=== PATIENT | male | born 2000 | race Caucasian/White ===

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

== ENCOUNTER 2019-12-24 09:42 | Emergency (ER) | payer OTHER ==
[~2019-12-24] VITALS: Ht 175.3 cm; Wt 103.3 kg
--- NOTE | 2019-12-24 09:44 | ED General ---
General Chief Complaint: Chest Wall Stated Complaint: WC RIB INJURY History of Present Illness Date Seen by Provider: Dec 24, 2019 Time Seen by Provider: 10:00 Initial Comments Patient is an otherwise healthy 19 y/o who works for the local [employer]. He comes to the ER this morning at the recommendation of his employer to be evaluated for left side rib pain. 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 He reports landing on the left had and causing injury to the left rib cage. Denies pain in the left upper extremity. Did not strike head. No LOC. He awoke this am with significant pain over the mid lateral left rib cage. Pain is worse when he takes a deep breath. Allergies and Home Medications Allergies Coded Allergies: No Known Drug Allergies (Unverified , 03/26/18) Home Medications Ibuprofen 800 Mg Tablet, 800 MG PO Q8H PRN for PAIN Prescribed by: AMY VICKERS on 12/24/19 1027 Patient Home Medication List Home Medication List Reviewed: Yes Review of Systems Review of Systems Constitutional: no symptoms reported EENTM: no symptoms reported Cardiovascular: no symptoms reported Gastrointestinal: no symptoms reported Musculoskeletal: see HPI Skin: no symptoms reported All Other Systems Reviewed Negative Unless Noted: Yes Physical Exam Vital Signs Vital Signs - First Documented 12/24/19 09:45 Temp 36.6 Pulse 67 Resp 18 B/P (MAP) 148/87 (107) Pulse Ox 98 O2 Delivery Room Air Capillary Refill : Height, Weight, BMI Height: '" Weight: lbs. oz. kg; BMI Method: General Appearance: No Apparent Distress, WD/WN HEENT: PERRL/EOMI Neck: Full Range of Motion Respiratory: Lungs Clear, Other (point TTP over mid lateral left ribs) Cardiovascular: Regular Rate, Rhythm Back: Normal Inspection Extremity: Normal Capillary Refill Neurologic/Psychiatric: Alert, Oriented x3 Skin: Normal Color Progress/Results/Core Measures Suspected Sepsis SIRS Temperature: Pulse: Respiratory Rate: Blood Pressure / Mean: Results/Orders My Orders Orders - AMY VICKERS DO Ribs/Unilateral With Chest (12/24/19 09:47) Ibuprofen Tablet (Motrin Tablet) (12/24/19 10:30) Vital Signs/I&O 12/24/19 09:45 Temp 36.6 Pulse 67 Resp 18 B/P (MAP) 148/87 (107) Pulse Ox 98 O2 Delivery Room Air Capillary Refill : Progress Note : Time: 10:34 Progress Note Patient seen for minor injury with pain to the left ribs. No acute findings on plain film imaging. Patient placed on motrin. Return to work in 48 hours. Rest at home today. F/u with employer's [facility] as needed but otherwise may return to work w/o restrictions. Departure Impression Primary Impression: Rib pain Additional Impression: Contusion of rib on left side Disposition: 01 HOME, SELF-CARE Condition: Improved Departure-Patient Inst. Scripts Ibuprofen (Ibuprofen) 800 Mg Tablet 800 MG PO Q8H PRN for PAIN, #30 TAB 0 Refills Prov: AMY VICKERS DO 12/24/19 AMY VICKERS DO Dec 24, 2019 09:44
--- OUTSIDE RECORDS SUMMARY | 2019-12-24 09:49 | XMS REPORT | Continuity of Care Document ---
Author Organization Unknown Address Unknown Phone Unavailable Allergies Active Description Code Type Severity Reaction Onset Reported/Identified Relationship to Patient Clinical Status Yes No Known Drug Allergies [id number] Drug Allergy Unknown N/A 03/26/2018 Medications There is no data. Problems Date Dx Coded Attending Type Code Diagnosis Diagnosed By 03/26/2018 AURA NORRIS Ot M25.572 PAIN IN LEFT ANKLE AND JOINTS OF LEFT FO 03/26/2018 AURA NORRIS Ot S90.02XA CONTUSION OF LEFT ANKLE, INITIAL ENCOUNT 03/26/2018 AURA NORRIS Ot S90.32XA CONTUSION OF LEFT FOOT, INITIAL ENCOUNTE 03/26/2018 AURA NORRIS Ot W22.09XA STRIKING AGAINST OTHER STATIONARY OBJECT 03/26/2018 AURA NORRIS Ot Y92.[address] 03/26/2018 AURA NORRIS Ot Y93.02 ACTIVITY, RUNNING 03/29/2018 AURA NORRIS Ot M25.572 PAIN IN LEFT ANKLE AND JOINTS OF LEFT FO 03/29/2018 AURA NORRIS Ot S90.02XA CONTUSION OF LEFT ANKLE, INITIAL ENCOUNT 03/29/2018 AURA NORRIS Ot S90.32XA CONTUSION OF LEFT FOOT, INITIAL ENCOUNTE 03/29/2018 AURA NORRIS Ot W22.09XA STRIKING AGAINST OTHER STATIONARY OBJECT 03/29/2018 AURA NORRIS Ot Y92.[address] 03/29/2018 AURA NORRIS Ot Y93.02 ACTIVITY, RUNNING 03/30/2018 ROE ARRIETA APRN Ot S99.929A UNSPECIFIED INJURY OF UNSPECIFIED FOOT, 03/30/2018 ROE ARRIETA APRN Ot X58.XXXA EXPOSURE TO OTHER SPECIFIED FACTORS, INI 03/31/2018 ROE ARRIETA APRN Ot S99.929A UNSPECIFIED INJURY OF UNSPECIFIED FOOT, 03/31/2018 ROE ARRIETA APRN Ot X58.XXXA EXPOSURE TO OTHER SPECIFIED FACTORS, INI 04/01/2018 ROE ARRIETA APRN Ot S99.929A UNSPECIFIED INJURY OF UNSPECIFIED FOOT, 04/01/2018 ROE ARRIETA APRN Ot X58.XXXA EXPOSURE TO OTHER SPECIFIED FACTORS, INI Procedures There is no data. Results There is no data. Encounters ACCT No. Visit Date/Time Discharge Status Pt. Type Provider Facility Loc./Unit Complaint [id number] 07/13/2017 18:50:00 07/13/2017 23:59: 59 [facility] Outpatient [facility] [id number] 03/30/2018 13:05:00 018 13:06:00 DIS Emergency ROE ARRIETA APRN [facility] ER FOOT INJURY [id number] 03/26/2018 20:09:00 018 22:45:00 DIS Emergency AURA NORRIS [facility] ER L FOOT INJ [id number] 12/24/2019 09:44:[address] Emergency AMY VICKERS DO [facility] ER FS WC RIB INJURY
--- NOTE | 2019-12-24 10:12 | Diagnostic Imaging Report ---
INDICATION: Pain. 5 views were obtained. FINDINGS: Heart size is normal. Lungs are clear. No pleural effusion or pneumothorax. Mediastinum is unremarkable. There are no displaced rib fractures. IMPRESSION: No acute cardiopulmonary abnormality. No displaced rib fractures. Dictated by: Dictated on workstation # [id number]
[2019-12-24] MEDS ORDERED: IBUP-1780 PO (10:27)
[2019-12-24] MEDS ORDERED: IBUPROFEN 800 MG (MOTRIN) TAB PO ONE (10:30)
[2019-12-24 10:35] VITALS: BP 143/85
== END 2019-12-24 10:38 | disposition home or self-care (01) ==
LOC: EDUNIT# 09:42 → ER FS 09:44
DX: S20.212A Contusion of left front wall of thorax, initial encounter (principal); W19.XXXA Unspecified fall, initial encounter; Y92.59 Other trade areas as the place of occurrence of the external cause; Y99.0 Civilian activity done for income or pay
CPT/HCPCS: 71101

== ENCOUNTER 2020-11-26 00:57 | Emergency (ER) | payer BC, OTHER ==
[~2020-11-26] VITALS: Ht 173 cm; Wt 103.3 kg
[~2020-11-26 00:57] MED LIST: IBUP-1780 PO
--- NOTE | 2020-11-26 01:54 | ED General ---
General Chief Complaint: General Problems/Pain Stated Complaint: R SIDE FACE NUMBNESS / L SIDE BODY NUMBNESS / CP Nursing Triage Note: Patient reports laying in bed around midnight and having chest pain, muscle cramps and SOA. Reports after his R side of face was numb and the L side of his body. Patient was able ambulate to room independently Source of Information: Patient Exam Limitations: No Limitations History of Present Illness Date Seen by Provider: Nov 26, 2020 Time Seen by Provider: 01:30 Initial Comments Patient is a 20-year-old male who presents to the emergency department today with a chief complaint of right-sided facial weakness, left-sided numbness and feeling weak. He also reported to the nurse that he was having some chest discomfort muscle cramps no shortness of air. Patient ambulated to room 7 without difficulty. He denies any recent illnesses such as fevers, chills, URI symptoms cough or congestion. No nausea vomiting or diarrhea. No recent illnesses in the last 2 to 3 weeks. No sick contacts. Patient states that he is having a hard time moving the right side of his face. 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 So he has a difficult time moving his right upper extremity. Patient states that his right eye is intermittently blurry. No significant past medical history denies drug use, alcohol use. All other review of systems reviewed and negative except as stated. Timing/Duration: 1 Hour Severity: Mild Associated Systoms: Chest Pain, Headaches (mild), Shortness of Air Allergies and Home Medications Allergies Coded Allergies: No Known Drug Allergies (Unverified , 03/26/18) Home Medications Ibuprofen 800 Mg Tablet, 800 MG PO Q8H PRN for PAIN Prescribed by: AMY VICKERS on 12/24/19 1027 Patient Home Medication List Home Medication List Reviewed: Yes Review of Systems Review of Systems Constitutional: see HPI EENTM: blurred vision (right eye) Respiratory: short of breath Cardiovascular: chest pain Gastrointestinal: no symptoms reported Genitourinary: no symptoms reported Musculoskeletal: muscle cramps Skin: no symptoms reported Psychiatric/Neurological: Headache, Paresthesia (left side of his body), Weakness (right facial muscles) All Other Systems Reviewed Negative Unless Noted: Yes Past Dqgzjww-Opdxhq-Rsotuu Hx Patient Social History Tobacco Use?: Yes Substance use?: No Alcohol Use?: No Pt feels they are or have been: No Seasonal Allergies Seasonal Allergies: No Past Medical History Surgeries: No Respiratory: No Cardiac: No Neurological: No Genitourinary: No Gastrointestinal: No Musculoskeletal: No Endocrine: No HEENT: No Cancer: No Psychosocial: No Integumentary: No Blood Disorders: No Family Medical History No Pertinent Family Hx Physical Exam Vital Signs Vital Signs - First Documented 11/26/20 01:11 Temp 36.4 Pulse 92 Resp 18 B/P (MAP) 142/90 (107) Pulse Ox 99 Capillary Refill : Less Than 3 Seconds Height, Weight, BMI Height: 5'9.00" Weight: 195lbs. oz. 88.107673oo; 34.00 BMI Method:Stated General Appearance: No Apparent Distress, WD/WN Eyes: Bilateral Eye Normal Inspection, Bilateral Eye PERRL, Bilateral Eye EOMI HEENT: TMs Normal, Normal ENT Inspection, Pharynx Normal Neck: Normal Inspection, Supple Respiratory: Lungs Clear, Normal Breath Sounds, No Accessory Muscle Use, No Respiratory Distress Cardiovascular: Regular Rate, Rhythm, No Murmur, Normal Peripheral Pulses Gastrointestinal: Non Tender, Soft Extremity: Normal Inspection, Other (decreased ROM right shoulder secondary to pain in the right shoulder - pre-exisiting; ) Neurologic/Psychiatric: Alert, Oriented x3, Normal Mood/Affect, Other (patient has normal function closing his right eye; will not raise his eyebrows bilaterally, but appears to have symmetrical function; talks only out of the left side of his mouth (is not drooling and drank water just fine withut a straw); right side of his mouth is not drooping and has no depressed nasolabial fold on the right. complains of subjective decreased sensation all down his left side) Progress/Results/Core Measures Suspected Sepsis SIRS Temperature: Pulse: 92 Respiratory Rate: 18 Blood Pressure 142 /90 Mean: 107 Results/Orders My Orders Orders - MONA BOOKER MD Prednisone Tablet (Deltasone Tablet) (11/26/20 02:00) Vital Signs/I&O 11/26/20 01:11 Temp 36.4 Pulse 92 Resp 18 B/P (MAP) 142/90 (107) Pulse Ox 99 Capillary Refill : Less Than 3 Seconds Blood Pressure Mean: 107 Progress Note : Time: 02:02 Progress Note patient has inconsistent exam with 7th nerve facial palsey. I don't believe he has a true Kaba's. He has subjective decreased sensation to the left side. no other focal neurologic deficits. I initially thought I would CT hs brain but I do not think in actual fact he needs this. Will go ahead and treat with steroids as he may have a partial Kaba's. Patient will be discharged to home to follow up with his primary care physician. Departure Impression Primary Impression: Paresthesia Additional Impression: Partial facial nerve palsy Disposition: HOME, SELF-CARE Condition: Stable Departure-Patient Inst. Decision time for Depature: 02:04 Referrals: [facility] [place],LOCAL PHYSICIAN (PCP) Primary Care Physician Patient Instructions: Paresthesia (DC), Kaba's Palsy Add. Discharge Instructions: take the steroids daily for the next 5 days. Follow up with a primary care physician. Return to the ER for recheck if you have any worsening numbness, weakness or other emergent concerns. Scripts Prednisone (Prednisone) 50 Mg Tab 50 MG PO DAILY for 5 Days, #5 TAB Prov: MONA BOOKER MD 11/26/20 MONA BOOKER MD Nov 26, 2020 01:54
[2020-11-26] MEDS ORDERED: predniSONE 20 MG TAB PO ONE (02:00)
[2020-11-26] MEDS ORDERED: PRD50T PO (02:06)
[2020-11-26 02:09] VITALS: BP 142/90
== END 2020-11-26 02:10 | disposition home or self-care (01) ==
LOC: EDUNIT# 00:57 → ER 00:59
DX: R20.2 Paresthesia of skin (principal); G51.0 Bell's palsy
CPT/HCPCS: 99283

== ENCOUNTER → 2020-12-07 | Outpatient (CLI) | payer BC ==
[~2020-12-07] MED LIST changes: +PRD50T PO
== END ==
LOC: LABNPT 05:09
PROVIDERS: ATTEND Orthopaedic Surgery
DX: Z01.812 Encounter for preprocedural laboratory examination (principal); Z20.822 Contact with and (suspected) exposure to COVID-19
CPT/HCPCS: 87635

== ENCOUNTER 2021-05-28 17:27 | Emergency (ER) | payer BC ==
[~2021-05-28] VITALS: Ht 175.3 cm; Wt 104.3 kg
--- NOTE | 2021-05-28 19:55 | ED Abdominal Pain ---
General Chief Complaint: Abdominal/GI Problems Stated Complaint: RUQ PAIN/FEVER Source of Information: Patient History of Present Illness Date Seen by Provider: May 28, 2021 Time Seen by Provider: 19:45 Initial Comments PT ARRIVES VIA POV FROM HOME C/O RIGHT UPPER QUADRANT PAIN SINCE WAKING AT 1130 THIS AM. FELT FINE YESTERDAY AND WHEN HE WENT TO BED LAST NIGHT PAIN IS CONSTANT AND NOTHING WORSENS OR IMPROVES PAIN RADIATES TO RIGHT FLANK RATES PAIN 10/10 + NAUSEA, NO VOMITING. NORMAL BM YESTERDAY. HAS HAD DECREASED URINATION TODAY HAS BEEN DRINKING LIQUIDS--LAST LIQUID AT 1600, BUT NOT EATEN AT ALL TODAY. HAD TEMP OF 102 AT 1600, TOOK 500 MG TYLENOL AT THAT TIME HAS NOT TAKEN ANYTHING ELSE FOR SYMPTOMS NO COUGH NO CHEST PAIN NO SHORTNESS OF BREATH PT HAS BEEN HAVING THIS PROBLEMS SINCE MID APRIL, AND WENT TO [facility] ON 05/04/21 AND DX WITH GALLBLADDER DISEASE. FOLLOWED UP AT [facility] AND WAS REFERRED TO DR. RODRIGUEZ PT SAW DR. RODRIGUEZ ON 05/21/21 AND IS SCHEDULED TO HAVE HIS GALLBLADDER REMOVED 06/05/21. HAS NOT ATTEMPTED TO CONTACT DR. RODRIGUEZ TODAY PCP: [facility] SURGEON: DR. RODRIGUEZ Allergies and Home Medications Allergies Coded Allergies: No Known Drug Allergies (Unverified , 03/26/18) Patient Home Medication List Ibuprofen (Ibuprofen) 800 Mg Tablet, 800 MG PO Q8H PRN for PAIN Prescribed by: AMY VICKERS on 12/24/19 1027 Prednisone (Prednisone) 50 Mg Tab, 50 MG PO DAILY Prescribed by: MONA BOOKER on 11/26/20 0206 Review of Systems Review of Systems Constitutional: see HPI, fever EENTM: No Symptoms Reported Respiratory: No Symptoms Reported Cardiovascular: No Symptoms Reported Gastrointestinal: See HPI, Abdominal Pain; Denies Constipated, Denies Diarrhea; Nausea, Poor Appetite, Poor Fluid Intake; Denies Vomiting Genitourinary: No Symptoms Reported Musculoskeletal: no symptoms reported Skin: no symptoms reported Psychiatric/Neurological: No Symptoms Reported Endocrine: No Symptoms Reported Hematologic/Lymphatic: No Symptoms Reported Past Wlhbwyc-Fclkrg-Hllpra Hx Patient Social History Tobacco Use?: No Use of E-Cig and/or Vaping dev: No Substance use?: No Alcohol Use?: Yes Alcohol Frequency: Once in a while Pt feels they are or have been: No Immunizations Up To Date Influenza Vaccine Up-to-Date: No; Not Current Seasonal Allergies Seasonal Allergies: No Past Medical History Surgeries: Yes (RIGHT SHOULDER SCOPE) Orthopedic Respiratory: No Cardiac: No Neurological: No Genitourinary: No Gastrointestinal: Yes Gall Bladder Disease Musculoskeletal: Yes (RIGHT SHOULDER SCOPE) Endocrine: No HEENT: No Cancer: No Psychosocial: No Integumentary: No Blood Disorders: No Family Medical History No Pertinent Family Hx Physical Exam Vital Signs Vital Signs - First Documented 05/28/21 19:32 Temp 37.4 Pulse 104 Resp 18 B/P (MAP) 114/76 (89) Pulse Ox 96 O2 Delivery Room Air Capillary Refill : Height/Weight/BMI Height: 5'9.00" Weight: 195lbs. oz. 88.270210li; 34.00 BMI Method:Stated General Appearance: WD/WN, no apparent distress, obese, other (FLAT AFFECT. DOES NOT APPEAR TO BE IN ANY DISCOMFORT; WALKS UPRIGHT AND MOVES WITHOUT DIFFICULTY) HEENT: PERRL/EOMI; No scleral icterus (R), No scleral icterus (L) Neck: normal inspection Respiratory: normal breath sounds, no respiratory distress, no accessory muscle use Cardiovascular: regular rate, rhythm, no murmur Gastrointestinal: normal bowel sounds, soft, no organomegaly; No distended, No guarding, No rebound; tenderness (EPIGASTRIC, RUQ AND RIGHT FLANK); No hernia, No mass Extremities: normal inspection Back: normal inspection, CVA tenderness (R) Neurologic/Psychiatric: no motor/sensory deficits, alert, normal mood/affect, oriented x 3 Skin: normal color, warm/dry; No jaundice Focused Exam Lactate Level 05/28/21 20:05: Lactic Acid Level 1.03 Lactic Acid Level Laboratory Tests Test 05/28/21 20:05 Lactic Acid Level 1.03 MMOL/L (0.50-2.00) Progress/Results/Core Measures Results/Orders Lab Results Laboratory Tests Test 05/28/21 20:05 05/28/21 20:50 Range/Units White Blood Count 6.1 4.3-11.0 10^3/uL Red Blood Count 4.91 4.30-5.52 10^6/uL Hemoglobin 15.4 13.3-17.7 g/dL Hematocrit 45 40-54 % Mean Corpuscular Volume 92 80-99 fL Mean Corpuscular Hemoglobin 31 25-34 pg Mean Corpuscular Hemoglobin Concent 34 32-36 g/dL Red Cell Distribution Width 13.2 10.0-14.5 % Platelet Count 234 130-400 10^3/uL Mean Platelet Volume 9.6 9.0-12.2 fL Immature Granulocyte % (Auto) 0 % Neutrophils (%) (Auto) 83 H 42-75 % Lymphocytes (%) (Auto) 6 L 12-44 % Monocytes (%) (Auto) 10 0-12 % Eosinophils (%) (Auto) 0 0-10 % Basophils (%) (Auto) 0 0-10 % Neutrophils # (Auto) 5.1 1.8-7.8 10^3/uL Lymphocytes # (Auto) 0.4 L 1.0-4.0 10^3/uL Monocytes # (Auto) 0.6 0.0-1.0 10^3/uL Eosinophils # (Auto) 0.0 0.0-0.3 10^3/uL Basophils # (Auto) 0.0 0.0-0.1 10^3/uL Immature Granulocyte # (Auto) 0.0 0.0-0.1 10^3/uL Neutrophils % (Manual) 72 % Lymphocytes % (Manual) 7 % Monocytes % (Manual) 11 % Band Neutrophils 10 % Blood Morphology Comment NORMAL Prothrombin Time 13.9 12.2-14.7 SEC INR Comment 1.0 0.8-1.4 Activated Partial Thromboplast Time 31 24-35 SEC Sodium Level 137 135-145 MMOL/L Potassium Level 4.5 3.6-5.0 MMOL/L Chloride Level 101 98-107 MMOL/L Carbon Dioxide Level 24 21-32 MMOL/L Anion Gap 12 5-14 MMOL/L Blood Urea Nitrogen 12 7-18 MG/DL Creatinine 1.24 0.60-1.30 MG/DL Estimat Glomerular Filtration Rate 74 BUN/Creatinine Ratio 10 Glucose Level 102 70-105 MG/DL Lactic Acid Level 1.03 0.50-2.00 MMOL/L Calcium Level 9.8 8.5-10.1 MG/DL Corrected Calcium 8.5-10.1 MG/DL Magnesium Level 1.7 1.6-2.4 MG/DL Total Bilirubin 0.6 0.1-1.0 MG/DL Aspartate Amino Transf (AST/SGOT) 25 5-34 U/L Alanine Aminotransferase (ALT/SGPT) 71 H 0-55 U/L Alkaline Phosphatase 80 40-136 U/L Total Protein 7.6 6.4-8.2 GM/DL Albumin 4.7 H 3.2-4.5 GM/DL Amylase Level 62 25-125 U/L Lipase 9 8-78 U/L Urine Color YELLOW Urine Clarity CLEAR Urine pH 6.0 5-9 Urine Specific [place] >=1.030 1.016-1.022 Urine Protein TRACE H NEGATIVE Urine Glucose (UA) NEGATIVE NEGATIVE Urine Ketones NEGATIVE NEGATIVE Urine Nitrite NEGATIVE NEGATIVE Urine Bilirubin 1+ H NEGATIVE Urine Urobilinogen 0.2 < = 1.0 MG/DL Urine Leukocyte Esterase NEGATIVE NEGATIVE Urine RBC (Auto) NEGATIVE NEGATIVE Urine RBC NONE /HPF Urine WBC NONE /HPF Urine Squamous Epithelial Cells 0-2 /HPF Urine Crystals NONE /LPF Urine Bacteria NEGATIVE /HPF Urine Casts NONE /LPF Urine Mucus LARGE H /LPF Urine Culture Indicated NO My Orders Orders - MIKE ELLIS DO Ed Iv/Invasive Line Start (05/28/21 19:48) Amylase (05/28/21 19:48) Cbc With Automated Diff (05/28/21 19:48) Comprehensive Metabolic Panel (05/28/21 19:48) Lactic Acid Analyzer (05/28/21 19:48) Lipase (05/28/21 19:48) Magnesium (05/28/21 19:48) Ua Culture If Indicated (05/28/21 19:48) Ed Iv/Invasive Line Start (05/28/21 19:48) Lactated Ringers (Lr 1000 Ml Iv Solution (05/28/21 20:00) Blood Culture (05/28/21 19:48) Sputum Culture (05/28/21 19:48) Urine Culture (05/28/21 19:48) Protime With Inr (05/28/21 19:48) Partial Thromboplastin Time (05/28/21 19:48) Chest 1 View, Ap/Pa Only (05/28/21 19:48) Ed Iv/Invasive Line Start (05/28/21 19:48) Ed Iv/Invasive Line Start (05/28/21 19:48) Vital Signs Adult Sepsis Patie Q15M (05/28/21 19:48) O2 (05/28/21 19:48) Remove Rings In Anticipation O (05/28/21 19:48) Manual Differential (05/28/21 20:05) Ondansetron Injection (Zofran Injectio (05/28/21 21:00) Ketorolac Injection (Toradol Injection) (05/28/21 21:00) Fentanyl Inj (Sublimaze Injection) (05/28/21 21:25) Pantoprazole Injection (Protonix Injecti (05/28/21 21:30) Medications Given in ED Current Medications Medications Dose Ordered Sig/Joanne Route Start Time Stop Time Status Last Admin Dose Admin Ketorolac Tromethamine 30 mg ONCE ONCE IVP 05/28/21 21:00 05/28/21 21:01 DC 05/28/21 21:13 30 MG Lactated Ringer's 1,000 ml @ 0 mls/hr Q0M ONCE IV 05/28/21 20:00 05/28/21 20:01 DC 05/28/21 20:05 1,000 MLS/HR Ondansetron HCl 4 mg ONCE ONCE IVP 05/28/21 21:00 05/28/21 21:01 DC 05/28/21 21:12 4 MG Vital Signs/I&O 05/28/21 05/28/21 19:32 19:32 Temp 37.4 Pulse 104 Resp 18 B/P (MAP) 114/76 (89) Pulse Ox 96 96 O2 Delivery Room Air Room Air Progress Progress Note : Progress Note SEPSIS PROTOCOL INITIATED Diagnostic Imaging Comments CXR--PER RADIOLOGIST REPORT AT 2039 FINDINGS: Single view of the chest demonstrates clear lungs bilaterally. The heart is normal. There is no pneumothorax. The osseous structures normal. IMPRESSION: Negative chest. Reviewed: Reviewed by Me Departure Communication (Admissions) 2128--SPOKE WITH DR. BOGGS, SURGEON [employer]. DOES NOT ADVISE ANY OTHER TESTS AT THIS TIME. PT IS TO CALL DR. RODRIGUEZ'S OFFICE IN THE MORNING AND SCHEDULE A FOLLOW UP APPOINTMENT THIS WEEK. Impression Primary Impression: Biliary colic Disposition: HOME, SELF-CARE Condition: Improved Departure-Patient Inst. Decision time for Depature: 21:30 Referrals: [facility] (PCP/Family) Primary Care Physician KHALIF RODRIGUEZ DO Patient Instructions: Gallstones ED Add. Discharge Instructions: CLEAR LIQUIDS--WATER, BROTH, JELLO, GATORADE IF YOUR PAIN IS GONE AND YOU ARE FEELING BETTER, ADD BRATS DIET TO CLEAR LIQUIDS--BANANAS, RICE, APPLESAUCE, TOAST, SALTINES FOLLOW UP WITH DR. RODRIGUEZ THIS WEEK FOR FURTHER CARE, CALL IN THE MORNING TO SCHEDULE APPOINTMENT All discharge instructions reviewed with patient and/or family. Voiced understanding. Scripts Hydrocodone/Acetaminophen (Hydrocodone-Acetamin 5-325 mg) 1 Each Tablet 1 EACH PO Q4-6 HOURS PRN for PAIN, #20 TAB Prov: MIKE ELLIS DO 05/28/21 Pantoprazole Sodium (Protonix) 40 Mg Tablet.dr 40 MG PO DAILY, #15 TAB Prov: MIKE ELLIS DO 05/28/21 Ondansetron (Ondansetron Odt) 8 Mg Tab.rapdis 8 MG PO Q4H PRN for NAUSEA/VOMITING, #10 TAB Prov: MIKE ELLIS DO 05/28/21 MIKE ELLIS DO May 28, 2021 19:55
[2021-05-28] MEDS ORDERED: LACTATED RINGERS 1,000 ML IV ONE (20:00)
--- NOTE | 2021-05-28 20:14 | Diagnostic Imaging Report ---
INDICATION: Fever, right upper quadrant abdominal pain. COMPARISON: None. FINDINGS: Single view of the chest demonstrates clear lungs bilaterally. The heart is normal. There is no pneumothorax. The osseous structures normal. IMPRESSION: Negative chest. Dictated by: Dictated on workstation # [id number]
[2021-05-28 20:18] LABS: BASOPHILS % (AUTO) 0 % (0-10); EOSINOPHILS % (AUTO) 0 % (0-10); HEMATOCRIT 45 % (40-54); HEMOGLOBIN 15.4 g/dL (13.3-17.7); LYMPHOCYTES # (AUTO) 0.4 10^3/uL (1.0-4.0); LYMPHOCYTES % (AUTO) 6 % (12-44); MEAN CORPUSCULAR HEMOGLOBIN 31 pg (25-34); MEAN CORPUSCULAR HGB CONC 34 g/dL (32-36); MEAN CORPUSCULAR VOLUME 92 fL (80-99); MEAN PLATELET VOLUME 9.6 fL (9.0-12.2); MONOCYTES # (AUTO) 0.6 10^3/uL (0.0-1.0); MONOCYTES % (AUTO) 10 % (0-12); NEUTROPHILS # (AUTO) 5.1 10^3/uL (1.8-7.8); NEUTROPHILS % (AUTO) 83 % (42-75); PLATELET COUNT 234 10^3/uL (130-400); WHITE BLOOD COUNT 6.1 10^3/uL (4.3-11.0)
[2021-05-28 20:42] LABS: PROTHROMBIN TIME PATIENT 13.9 SEC (12.2-14.7)
[2021-05-28 20:52] LABS: ALANINE AMINOTRANSFERASE 71 U/L (0-55); ALBUMIN 4.7 GM/DL (3.2-4.5); ALKALINE PHOSPHATASE 80 U/L (40-136); AMYLASE 62 U/L (25-125); BILIRUBIN,TOTAL 0.6 MG/DL (0.1-1.0); BUN/CREATININE RATIO 10; CALCIUM 9.8 MG/DL (8.5-10.1); CARBON DIOXIDE 24 MMOL/L (21-32); CHLORIDE 101 MMOL/L (98-107); CREATININE SERUM 1.24 MG/DL (0.60-1.30); GFR ESTIMATED 74; GLUCOSE 102 MG/DL (70-105); LIPASE 9 U/L (8-78); MAGNESIUM 1.7 MG/DL (1.6-2.4); POTASSIUM 4.5 MMOL/L (3.6-5.0); SODIUM 137 MMOL/L (135-145); TOTAL PROTEIN 7.6 GM/DL (6.4-8.2)
[2021-05-28 20:55] LABS: CLARITY,URINE CLEAR; COLOR,URINE YELLOW; GLUCOSE, URINE (UA) NEGATIVE (NEGATIVE); KETONES,URINE NEGATIVE (NEGATIVE); LEUKOCYTE ESTERASE ,URINE NEGATIVE (NEGATIVE); NITRITE,URINE NEGATIVE (NEGATIVE); PROTEIN,URINE TRACE (NEGATIVE)
[2021-05-28] MEDS ORDERED: ONDANSETRON 4 MG/2 ML (SDV) Z0FRAN IVP ONE (21:00)
[2021-05-28] MEDS ORDERED: KETOROLAC 30 MG/ML VIAL IVP ONE (21:00)
[2021-05-28 21:05] LABS: BACTERIA,URINE NEGATIVE /HPF; BILIRUBIN,URINE 1+ (NEGATIVE); SQUAMOUS EPITHELIAL CELL,UR 0-2 /HPF
[2021-05-28 21:06] LABS: BAND NEUTROPHILS 10 %; LYMPHOCYTES % (MANUAL) 7 %; MONOCYTES % (MANUAL) 11 %; NEUTROPHILS % (MANUAL) 72 %
[2021-05-28 21:07] LABS: RBC MORPH NORMAL
[2021-05-28] MEDS ORDERED: fentaNYL INJ 100 MCG/2 ML AMP IVP STA (21:25)
[2021-05-28] MEDS ORDERED: PANTOPRAZOLE 40 MG (PROTONIX) VIAL IV ONE (21:30)
[2021-05-28] MEDS ORDERED: PANT40TA2 PO (21:46)
[2021-05-28] MEDS ORDERED: ACHD5005 PO (21:46)
[2021-05-28] MEDS ORDERED: ONDA8TAB13 PO (21:46)
[2021-05-28 22:25] VITALS: BP 114/76
== END 2021-05-28 22:25 | disposition home or self-care (01) ==
LOC: EDUNIT# 17:27 → ER 17:30
DX: K80.50 Calculus of bile duct without cholangitis or cholecystitis without obstruction (principal); E66.9 Obesity, unspecified; Z68.34 Body mass index [BMI] 34.0-34.9, adult
CPT/HCPCS: 36415; 71045; 80053; 81000; 82150; 83605; 83690; 83735; 85007; 85027; 85610; 85730; 87040; 87077; 87088; 96374; 96375

== ENCOUNTER 2021-05-29 05:30 | Outpatient (RCR) | payer BC ==
[~2021-05-29] VITALS: Ht 175 cm; Wt 107.0 kg
[~2021-05-29 05:30] MED LIST changes: +ACHD5005 PO; +ONDA8TAB13 PO; +PANT40TA2 PO
== END 2021-05-29 16:00 | disposition home or self-care (01) ==
LOC: PREOP 05:30 → EDSTATUS 09:30 → PREOP 16:00
PROVIDERS: ATTEND Surgery
DX: Z01.818 Encounter for other preprocedural examination (principal)

== ENCOUNTER 2021-06-05 06:34 | Day surgery (SDC) | payer BC ==
[~2021-06-05] VITALS: Ht 175 cm; Wt 107.0 kg
[2021-06-05] MEDS ORDERED: LIDOCAINE/EPI 1%-1:200,000 (XYLOCAINE) 30 ML VIAL ONE (06:54)
[2021-06-05 07:00] VITALS: BP 124/86
[2021-06-05] MEDS ORDERED: MIDAZOLAM 2 MG/2 ML (VERSED) VIAL ONE (07:04)
[2021-06-05] MEDS ORDERED: proPOfol 200 MG/20 ML (DIPRIVAN) VIAL IV ONE (07:04)
[2021-06-05] MEDS ORDERED: ONDANSETRON 4 MG/2 ML (SDV) Z0FRAN ONE (07:04)
[2021-06-05] MEDS ORDERED: SEVOFLURANE (ULTANE) 15 ML INHAL SOLN ONE ×2 (07:04→07:07)
[2021-06-05] MEDS ORDERED: LIDOCAINE PF 2% 5 ML (XYLOCAINE) VIAL ONE (07:04)
[2021-06-05] MEDS ORDERED: fentaNYL INJ 100 MCG/2 ML AMP ONE (07:04)
== END 2021-06-05 07:40 | disposition home or self-care (01) ==
LOC: SDC 06:34
PROVIDERS: ATTEND Surgery
DX: K80.10 Calculus of gallbladder with chronic cholecystitis without obstruction (principal); Z53.09 Procedure and treatment not carried out because of other contraindication; U07.1 COVID-19

== ENCOUNTER 2021-07-10 05:31 | Outpatient (CLI) | payer BC | END 2021-07-10 12:19 | disposition home or self-care (01) | LOC: PREOP 05:31 | PROVIDERS: ATTEND Surgery | DX: Z01.818 Encounter for other preprocedural examination (principal) ==

== ENCOUNTER 2021-07-17 06:35 | Day surgery (SDC) | payer BC ==
[~2021-07-17] VITALS: Ht 175.3 cm; Wt 112.9 kg
[2021-07-17] VITALS (11 sets, daily range): BP systolic 112–133; BP diastolic 54–91
[2021-07-17] MEDS ORDERED: ceFAZolin INJECTION 1,000 MG ONE ×2 (07:00→08:59)
[2021-07-17] MEDS ORDERED: ceFAZolin INJECTION 1,000 MG VIAL IV ONE (07:15)
[2021-07-17] MEDS ORDERED: LACTATED RINGERS 1,000 ML IV PRN (07:15)
[2021-07-17] MEDS ORDERED: LIDOCAINE/EPI 1%-1:200,000 (XYLOCAINE) 30 ML VIAL ONE (07:19)
[2021-07-17] MEDS ORDERED: proPOfol 200 MG/20 ML (DIPRIVAN) VIAL IV ONE (07:58)
[2021-07-17] MEDS ORDERED: ROCURONIUM 10 MG/ML 5 ML SYRINGE IV ONE (07:58)
[2021-07-17] MEDS ORDERED: fentaNYL INJ 100 MCG/2 ML AMP ONE (07:58)
[2021-07-17] MEDS ORDERED: MIDAZOLAM 2 MG/2 ML (VERSED) VIAL ONE (07:58)
[2021-07-17] MEDS ORDERED: ONDANSETRON 4 MG/2 ML (SDV) Z0FRAN ONE (07:58)
[2021-07-17] MEDS ORDERED: LIDOCAINE PF 2% 5 ML (XYLOCAINE) VIAL ONE (07:58)
[2021-07-17] MEDS ORDERED: PHENYLEPHRINE 100 MCG/ML 10 ML (ANESTHESIA) SYR ONE (09:13)
[2021-07-17] MEDS ORDERED: GLYCOPYRROLATE 0.2 MG/ML (ROBINUL) 2 ML VIAL ONE (09:25)
[2021-07-17] MEDS ORDERED: NEOSTIGMINE 3 MG/3 ML VIAL ONE (09:25)
--- NOTE | 2021-07-17 09:35 | Progress Note-Post Operative ---
Post-Operative Progess Note Surgeon (s)/Crew Chief (s) Surgeon KHALIF RODRIGUEZ DO Crew Chief: Virgen Pre-Operative Diagnosis CHOLELITHIASIS, CHOLEYCSTITIS Post-Operative Diagnosis same plus adhesions b/l inguinal hernia Procedure & Operative Findings Date of Procedure 07/17/21 Procedure Performed/Findings PROCEDURE: Laparoscopic cholecystectomy with intraoperative cholangiogram. COMPLICATIONS: None. PROCEDURE: The patient was taken to the operating suite and was prepped and draped in sterile fashion. A surgical pause was performed. Just superior to the umbilicus, a 12 mm incision was made. Dissection was taken down to the fascia, which was then scored and grasped with a Abdiel and the abdomen was then entered. An 0 Vicryl suture was placed in a ygjyuk-yw-wueum fashion and a Freeman trocar was placed and secured. Pneumoperitoneum was achieved. A 5mm trochar placed in the subxyphoid and 2 in the right upper quadrant. The gallbladder was then grasped and elevated. Noted adhesions down around the base of gallbladder and cystic duct. Adhesions usually indicate previous gallbladder attacks. The cystic duct and cystic artery were then dissected out. Clip was placed on the distal portion of the cystic duct which was then partially transected. An arrow catheter was inserted into the duct. The cholangiogram was then performed. No filing defects and contrast made its way into the duodenum. Catheter removed. Clips were placed on proximal portion of the cystic duct and then the duct was then transected. Clips were placed along the proximal and distal portion of the cystic artery which was then transected. Hook cautery was used to dissect the gallbladder from the gallbladder fossa achieving hemostasis. The gallbladder was placed in an Endobag and removed through the 12 mm trocar site. The abdomen was then reinspected. Minimal amount of irrigation was used to irrigate the abdomen and there were no signs of active bleeding. Hemostasis had been achieved. I then looked in the pelvis and saw b/l indirect inguinal hernia. Small on the right and the beginning of on the left. All ports removed and the 12 mm fascial defect was then closed with 0 Vicryl suture that had been placed in [id number] fashion. The abdomen was then desufflated. The abdomen was then washed and dried. The skin was then closed using 4-0 Monocryl in a subcuticular fashion. The abdomen was washed and dried and Skin Affix was place over incisions. Patient tolerated the procedure well without any complications and was taken to the recovery room in stable condition. Dr. New assisted on this case helping to make incisions, close incisions, identify anatomy and hold anatomy out of the way. Anesthesia Type GET Estimated Blood Loss Estimated blood loss (mL): scant Specimens/Packing Specimens Removed GB and contents KHALIF RODRIGUEZ DO Jul 17, 2021 09:35
[2021-07-17] MEDS ORDERED: ACHD5005 PO (09:36)
--- NOTE | 2021-07-17 09:37 | Discharge Inst-Surgical ---
Discharge Inst-Surgical Depart Medication/Instructions New, Converted or Re-Newed RX: Transmitted to Pharmacy Patient Instructions Follow up Appt: Make appointment for 1 week. [phone] Instructions: No lifting greater than 20 pounds. No strenuous activity. May shower in 24 hours, no tub bath or soaking. Use incentive spirometer at home as directed. No Smoking Skin/Wound Care: May remove bandages in am. You need to leave the Dermabond on incision it will fall off on it's own. Symptoms to Report: Appetite Changes, Extremity Discoloration, Numbness/Tingling, Swelling Increased, Bleeding Excessive, Eyesight Changes, Pain Increased, Urine Color Change, Constipation(Persistent), Fever over 101 degree F, Pain/Pressure in chest, Urinating Difficulty, Cough Up/Vomit Blood, Heart Beat Irreg/Pounding, Pain/Pressure in jaw, Cramps in feet or legs, Lightheadedness, Pain/Pressure in shoulder, Diarrhea(Persistent), Memory Changes Suddenly, Questions/Concerns, Weight gain consecutive days, Dizziness/Fainting, Nausea/Vomiting, Shortness of Breath, Weight gain over 2 pounds If questions or concerns contact your physician Or seek help at emergency department. Activity Activity as Tolerated: Yes Activity Instructions: Avoid Stress to Incision Driving Instructions: No Driving/Refer to Diet Discharge Diet: Avoid Fatty Foods, Low Fat/Low Cholesterol Diet After 24 Hours: Clear Liquid if Nauseous If Any Problems/Questions/Issu: Contact Your Physician, Go to Emergency Room Skin/Wound Care Infection Signs and Symptoms: Increased Redness, Foul Odor of Wound, Increased Drainage, Skin Itchy or Has a Rash, Increased Swelling, Temperature Above 101 F Wound Care Comment: heating pad to shoulder or neck for pain Bathing Instructions: Shower Stitches/Marcella/Dermabond Dis: Dermabond Ice Pack: Ice On and Off Site KHALIF RODRIGUEZ DO Jul 17, 2021 09:37
[2021-07-17] MEDS ORDERED: SEVOFLURANE (ULTANE) 15 ML INHAL SOLN ONE (09:43)
[2021-07-17] MEDS ORDERED: MEPERIDINE (DEMEROL) INJ 50 MG/ML IVP ONE (10:00)
[2021-07-17] MEDS ORDERED: ONDANSETRON 4 MG/2 ML (SDV) Z0FRAN IVP PRN (10:00)
[2021-07-17] MEDS ORDERED: PROMETHAZINE INJ 25 MG/ML (PHENERGAN) AMP IVP ONE (10:00)
[2021-07-17] MEDS ORDERED: fentaNYL INJ 100 MCG/2 ML AMP IVP ONE (10:00)
[2021-07-17] MEDS ORDERED: HYDROmorphone 2 MG/ML VIAL (DILAUDID) IV ONE (10:00)
--- NOTE | 2021-07-17 10:02 | Diagnostic Imaging Report ---
INDICATION: Fluoroscopy during intraoperative cholangiogram. Fluoroscopy was provided in the OR during intraoperative cholangiogram. 8 seconds of fluoroscopic time was utilized. 38 images were obtained. Images demonstrate contrast being injected via the cystic duct remnant. There is opacification of the common bile duct as well as intrahepatic biliary ducts. Contrast is seen passing into the 2nd portion of the duodenum. There are no filling defects identified to suggest retained common bile duct stones. IMPRESSION: Fluoroscopy during intraoperative cholangiogram, as described. Dictated by: Dictated on workstation # [id number]
--- NOTE | 2021-07-17 10:13 | Anesthesia-General Post-Op ---
General Patient Condition Mental Status/LOC: Same as Preop Cardiovascular: Satisfactory Nausea/Vomiting: Absent Respiratory: Satisfactory Pain: Controlled Complications: Absent Post Op Complications Complications None Follow Up Care/Instructions Patient Instructions None needed. Anesthesia/Patient Condition Patient Condition Patient is doing well, no complaints, stable vital signs, no apparent adverse anesthesia problems. No complications reported per nursing. JOSE BLANCA CRNA Jul 17, 2021 10:13
[2021-07-17] MEDS ORDERED: HYDROcodone/APAP 5 MG/325 MG (LORTAB) TAB PO ONE (11:15)
[2021-07-17] MEDS ORDERED: HYDROcodone/APAP 5 MG/325 MG (LORTAB) TAB ONE (11:17)
== END 2021-07-17 11:40 | disposition home or self-care (01) ==
LOC: SDC 06:35
PROVIDERS: ATTEND Surgery
DX: K80.10 Calculus of gallbladder with chronic cholecystitis without obstruction (principal); K40.20 Bilateral inguinal hernia, without obstruction or gangrene, not specified as recurrent; E66.9 Obesity, unspecified; Z68.36 Body mass index [BMI] 36.0-36.9, adult; Z87.891 Personal history of nicotine dependence
CPT/HCPCS: 76000; 87081; 88304; 94664

== ENCOUNTER → 2021-12-24 | Outpatient (CLI) | payer BC ==
[~2021-12-24] MED LIST changes: +CATHETER FLUSH 10 ML SYR IV PRN; +HOLD METFORMIN - RECEIVED CONTRAST 20 ML VIAL IV SCH; +IOHEXOL 350 MG/ML 100 ML (OMNIPAQUE 350) VIAL IV ONE; +NS 100 ML (IVPB) BAG IV ONE; +PANT20TA2 PO; +SUCR1TAB36 PO
--- NOTE | 2021-12-24 11:43 | Diagnostic Imaging Report ---
CT ABDOMEN/PELVIS W TECHNIQUE: Multiple contiguous axial images were obtained through the abdomen and pelvis after administration of intravenous contrast. All CT scans use one or more of the following dose optimizing techniques: automated exposure control, MA and/or KvP adjustment based on patient size and exam type or iterative reconstruction. INDICATION: Right lower quadrant pain COMPARISON: None available. FINDINGS: Lower chest: The lung bases are clear. No pericardial or pleural effusion. Peritoneum: No free intraperitoneal air or fluid. Liver and biliary system: Diffuse low-attenuation liver raises possibility hepatic steatosis. No focal hepatic lesion. Cholecystectomy. No biliary duct dilatation. Spleen and Pancreas: Spleen is normal. The pancreas enhances normally without mass lesion or peripancreatic inflammatory changes. Adrenals: Normal. tract: The kidneys enhance normally without suspicious mass or obstruction. Urinary bladder is distended without wall thickening. Prostate is not enlarged. GI tract: Stomach is decompressed. No bowel obstruction. No pericolonic inflammatory changes. Normal appendix. Vasculature and Lymph nodes: Normal caliber aorta. No abdominal or pelvic lymphadenopathy. Musculoskeletal: No concerning osseous lesion. No inguinal hernia. IMPRESSION: 1. No acute obstructive or inflammatory process. Normal appendix. 2. No inguinal hernia. Dictated by: Dictated on workstation # [id number]
== END ==
LOC: RAD 10:42
PROVIDERS: ATTEND Surgery
DX: R10.31 Right lower quadrant pain (principal)
CPT/HCPCS: 74177

== ENCOUNTER 2021-12-25 07:43 | Day surgery (SDC) | payer BC ==
[~2021-12-25] VITALS: Ht 175.3 cm; Wt 110.9 kg
[~2021-12-25 07:43] MED LIST changes: -CATHETER FLUSH 10 ML SYR IV PRN; -HOLD METFORMIN - RECEIVED CONTRAST 20 ML VIAL IV SCH; -IOHEXOL 350 MG/ML 100 ML (OMNIPAQUE 350) VIAL IV ONE; -NS 100 ML (IVPB) BAG IV ONE; -PANT20TA2 PO; -SUCR1TAB36 PO
[2021-12-25] MEDS ORDERED: LACTATED RINGERS 1,000 ML IV STA (07:54)
[2021-12-25] MEDS ORDERED: HURRICAINE EXT TUBE (BENZOCAINE) XX PRN (08:00)
[2021-12-25 08:15] VITALS: BP 126/86
[2021-12-25] MEDS ORDERED: proPOfol 200 MG/20 ML (DIPRIVAN) VIAL IV ONE ×2 (09:16→09:20)
[2021-12-25] MEDS ORDERED: MIDAZOLAM 2 MG/2 ML (VERSED) VIAL ONE (09:16)
--- NOTE | 2021-12-25 09:34 | Progress Note-Post Operative ---
Post-Operative Progess Note Surgeon (s)/Promotional Model (s) Surgeon KHALIF RODRIGUEZ DO Promotional Model: none Pre-Operative Diagnosis upper abd pain Post-Operative Diagnosis GAstritis Hiatal hernia Procedure & Operative Findings Date of Procedure 12/25/21 Procedure Performed/Findings EGD with biopsy PROCEDURE NOTE: After informed consent was obtained, the patient was brought to the endoscopy suite, placed in bed in left lateral decubitus position. He was administered IV sedation by the TUNGSTEN TENDER who then monitored vitals the entire time, heart rate, blood pressure and pulse ox and the scope was inserted down the mouth through the esophagus into the stomach. Pushed into the stomach, past the antrum and into the duodenum. Duodenum looked good. Pulled back and did a biopsy of antrum, then retroflexed the scope and saw moderatate Gastritis. I also saw a very small hiatal hernia, took a picture of this and then did a biopsy of the body and cardia because of the inflammation. Finally pulled the scope into the GE junction, took a picture of the GE junction and then did a biopsy of the GE junction. Pushed the scope b ack into the stomach, suctioned all the air out of the stomach. At this point pulled the scope up the esophagus and out the mouth. The patient tolerated the procedure, and he recovered in endoscopy suite. Anesthesia Type IV sedation by Anesthesia Estimated Blood Loss Estimated blood loss (mL): scant Specimens/Packing Specimens Removed antral bx body of stomach cardia of stomach GE jxn KHALIF RODRIGUEZ DO Dec 25, 2021 09:34
[2021-12-25 09:36] VITALS: BP 107/60
[2021-12-25] MEDS ORDERED: PANT20TA2 PO (09:36)
[2021-12-25] MEDS ORDERED: SUCR1TAB36 PO (09:36)
--- NOTE | 2021-12-25 09:36 | Endoscopy Discharge Instruct ---
Endo Procedure/Findings Findings 1.: Gastritis 2.: Hiatal Hernia Discharge Instructions - Activity: You might feel a little sleepy until tomorrow. This is due to the medicine you received to relax you. Until tomorrow, you should: NOT drive a car, operate machinery or power tools. NOT drink any alcoholic beverages. NOT make any important decisions or sign importortant papers. Do not return to work until tomorrow, unless otherwise instructed. Resume previous activities tomorrow. Diet: Start by taking liquids. If you tolerate liquids, advance to solid food. 1.: EGD in 1 year Notify Physician - If you experience excessive bleeding, unusual abdominal pain, fever, or chest pain, contact your doctor immediately. KHALIF RODRIGUEZ DO Dec 25, 2021 09:36
[2021-12-25 10:05] VITALS: BP 118/80
--- NOTE | 2021-12-25 12:09 | Anesthesia-General Post-Op ---
MAC Patient Condition Mental Status/LOC: Same as Preop Cardiovascular: Satisfactory Nausea/Vomiting: Absent Respiratory: Satisfactory Pain: Controlled Complications: Absent Post Op Complications Complications None Follow Up Care/Instructions Patient Instructions None needed. Anesthesiology Discharge Order Discharge Order Patient was doing well this morning after the procedure, no complaints, stable vital signs, no apparent adverse anesthesia problems. No complications reported per nursing. CHAD FRAZIER DO Dec 25, 2021 12:09
== END 2021-12-25 10:07 | disposition home or self-care (01) ==
LOC: ENDO 07:43
PROVIDERS: ATTEND Surgery
DX: K29.50 Unspecified chronic gastritis without bleeding (principal); B96.81 Helicobacter pylori [H. pylori] as the cause of diseases classified elsewhere; K44.9 Diaphragmatic hernia without obstruction or gangrene; K20.90 Esophagitis, unspecified without bleeding; F17.220 Nicotine dependence, chewing tobacco, uncomplicated; Z28.310 Unvaccinated for COVID-19; Z68.36 Body mass index [BMI] 36.0-36.9, adult; E66.9 Obesity, unspecified

== ENCOUNTER 2022-06-25 09:14 | Emergency (ER) | payer BC, OTHER ==
[~2022-06-25] VITALS: Ht 175 cm; Wt 103.0 kg
[~2022-06-25 09:14] MED LIST changes: +PANT20TA2 PO; +SUCR1TAB36 PO
--- NOTE | 2022-06-25 10:05 | Diagnostic Imaging Report ---
INDICATION: Right shoulder pain AP, oblique, and transscapular views of the right shoulder are obtained. No fracture or acute bony abnormality seen. Glenohumeral joint and AC joint are unremarkable IMPRESSION: Negative right shoulder. Dictated by: Dictated on workstation # [id number]
[2022-06-25] MEDS ORDERED: IBUP-1780 PO (10:09)
--- NOTE | 2022-06-25 10:09 | ED Upper Extremity ---
General Chief Complaint: Upper Extremity Stated Complaint: WC RT ARM INJ Nursing Triage Note: PT REPORTS HE WAS UNLOADING A Liiiike TRUCK AT ABOUT 0730 AND HE STARTED HAVING PAIN IN THE RIGHT BICEP AND SHOULDER AREA. HE HAS HAD A PREVIOUS SURGERY ON THE BICEP. HE REPORTED THE BOXES HE WAS UNLOADING WEIGHED ANYWHERE FROM 30-50 LBS. HE TOOK TYLENOL AT 0830. Source: patient History of Present Illness Date Seen by Provider: Jun 25, 2022 Time Seen by Provider: 09:19 Initial Comments 21 yo male presenting with complaint of pain to right shoulder with decreased sensation to outer part of arm since about 0730 am when he was at work. 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 He felt pain in his right shoulder and it progressed and hurt down his arm and into shoulder blade area. He has a history of biceps tendon tear needing surgical repair by a doctor from [place]. That previous injury was also from a work related incident. He took acetaminophen around 0830 and it is helping with his pain. Once he advised his employer of the pain and possible recurrent injury they brought him to the ED for evaluation. He denies any direct trauma or fall. He is right hand dominant. Onset: this morning Severity: severe Pain/Injury Location: right shoulder, right arm Method of Injury: other (lifting boxes to unload a truck at work for [employer]) Modifying Factors: Worse With Movement; Improves With Pain Medication (acetaminophen helping with pain) Allergies and Home Medications Allergies Coded Allergies: No Known Drug Allergies (Unverified , 07/17/21) Patient Home Medication List Home Medication List Reviewed: Yes Ibuprofen (Ibuprofen) 800 Mg Tablet, 800 MG PO Q8H PRN for PAIN Prescribed by: SAHIL GODINEZ on 06/25/22 1009 Pantoprazole Sodium (Protonix) 20 Mg Tablet.dr, 20 MG PO BID Prescribed by: KHALIF RODRIGUEZ on 12/25/21 09 Sucralfate (Carafate) 1 Gram Tablet, 1 GM PO ACHS Prescribed by: KHALIF RODIRGUEZ on 12/25/21 09 Review of Systems Constitutional: No chills, No fever EENTM: no symptoms reported Respiratory: no symptoms reported Cardiovascular: no symptoms reported Gastrointestinal: no symptoms reported Genitourinary: no symptoms reported Musculoskeletal: see HPI, joint pain (right shoulder), muscle pain Skin: No change in color Psychiatric/Neurological: Paresthesia (right upper arm lateral aspect decreased sensation since injury this am ) Past Eudcbhn-Wunnou-Ftkrht Hx Patient Social History Tobacco Use?: No Use of E-Cig and/or Vaping dev: No Substance use?: No Alcohol Use?: No Pt feels they are or have been: No Seasonal Allergies Seasonal Allergies: Yes Past Medical History Surgery/Hospitalization HX: RT BICEP TEAR Surgeries: Yes (SHOULDER SCOPE) Gallbladder Respiratory: No Currently Using CPAP: No Currently Using BIPAP: No Cardiac: No Neurological: No Genitourinary: No Gastrointestinal: Yes (ABD PAIN, ) Gastroesophageal Reflux Musculoskeletal: Yes (HX SHOULDER PAIN) Endocrine: No HEENT: No Cancer: No Psychosocial: Yes Anxiety, Depression Integumentary: No Blood Disorders: No Adverse Reaction/Blood Tranf: No Family Medical History No Pertinent Family Hx Physical Exam Vital Signs Vital Signs - First Documented 06/25/22 09:20 Temp 36.6 Pulse 90 Resp 16 B/P (MAP) 128/91 (103) Pulse Ox 100 O2 Delivery Room Air Capillary Refill : Less Than 3 Seconds Height, Weight, BMI Height: 5'9.00" Weight: 195lbs. oz. 88.553998sl; 33.00 BMI Method:Stated General Appearance: WD/WN, no apparent distress HEENT: PERRL/EOMI Neck: non-tender, full range of motion, supple, normal inspection Cardiovascular: normal peripheral pulses Shoulder: No deformity, No ecchymosis; limited ROM (due to pain in right shoulder), pain, soft tissue tenderness Elbow/Forearm: normal inspection, non-tender, no evidence of injury, normal ROM Hand: normal inspection, non-tender, no evidence of injury, normal ROM Neurologic/Tendon: normal sensation, normal motor functions, normal tendon functions (distal right arm. unable to fully assess tendon function at shoulder level due to pain and limited movement) Neurologic/Psychiatric: alert, oriented x 3 Skin: normal color, warm/dry Progress/Results/Core Measures Results/Orders My Orders Orders - SAHIL GODINEZ MD Shoulder 3 View Right (06/25/22 09:43) Ice: Apply To Affected Area (06/25/22 09:43) Ed Ortho/Other Supplies Order (06/25/22 10:10) Orthopedic Equiment (06/25/22 10:10) Vital Signs/I&O 06/25/22 06/25/22 09:20 10:12 Temp 36.6 36.6 Pulse 90 90 Resp 16 16 B/P (MAP) 128/91 (103) 128/91 Pulse Ox 100 100 O2 Delivery Room Air Room Air Blood Pressure Mean: 103 Progress Progress Note #1: Progress Note Potential recurrent injury to tendon of right bicep, possible rotator cuff injury, possible brachial plexus injury. Reviewed recommendations on online medical reference, Nex[employer]. I also spoke with Orthopedics doctor coupon clerk, Dr. Carlos Alberto Freire. Discussed his presentation and pain without obvious muscle bunching to indicate complete tear of biceps muscle/tendon. Since he has had previous surgery and injury he would need MRI to fully evaluate his shoulder. Dr. Freire voiced that he would be happy to see him in clinic but he could also try to go back to specialist from previous injury. Dr. Freire would likely refer him on to shoulder specialist anyway. He agreed that the xrays and CT imaging available here would not be as beneficial as MRI. I ordered plain films of the right shoulder to help rule out bony injury. Progress Note #2: Progress Note I personally reviewed and interpreted his 3 views right shoulder as him having no acute bony injury. Will place him in sling to limit shoulder movement on right side. Ice for inflammation and pain. Ibuprofen 800 mg every 8 hours as needed for pain. May also take over the counter acetaminophen 650 mg every 6 hours as needed for pain. No use of right arm at work until cleared by Orthopedics. MRI likely to be done with Orthopedics. Since he had this happen at work and is a work comp case will write recommendations on WC sheet and refer back to work and his HR department for arranging follow up and additional testing. Diagnostic Imaging Diagonstic Imaging: Xray Plain Films/CT/US/NM/MRI: other (shoulder) Comments [facility] [place], [place] NAME: CAROLYN ROSS [facility] REC#: [id number] PT STATUS: REG ER : 2000 PHYSICIAN: SAHIL GODINEZ MD ADMIT DATE: 06/25/22/ER FS Draft Date of Exam:06/25/22 SHOULDER 3 VIEW RIGHT INDICATION: Right shoulder pain AP, oblique, and transscapular views of the right shoulder are obtained. No fracture or acute bony abnormality seen. Glenohumeral joint and AC joint are unremarkable IMPRESSION: Negative right shoulder. Dictated on workstation # [id number] Dict: 06/25/22 1002 Trans: 06/25/22 1004 [facility] [id number] Interpreted by: ADITYA COMBS MD Electronically signed by: Reviewed: Reviewed by Me (I reviewed radiologist report at 1004) Departure Impression Primary Impression: Acute pain of right shoulder Additional Impression: Status post musculoskeletal system surgery Disposition: HOME, SELF-CARE Condition: Stable Departure-Patient Inst. Decision time for Depature: 10:04 Referrals: MARICRUZ MACARIO APRN (PCP) Primary Care Physician [facility] (Family) Primary Care Physician Patient Instructions: Shoulder Pain ED Add. Discharge Instructions: Wear sling to support right arm and limit use of right arm until you can be seen and evaluated by Orthopedics. You will likely need an MRI to fully evaluate the shoulder and rotator cuff as well as looking at how your shoulder is doing in regards to your history of surgery on the tendon previously. Ice 20 minutes 4 times a day for next 2 days then could alternate with heat. Ibuprofen 800 mg every 8 hours as needed for pain/inflammation. May also take Acetaminophen 650 mg every 6 hours as needed for pain. All discharge instructions reviewed with patient and/or family. Voiced understanding. Scripts Ibuprofen (Ibuprofen) 800 Mg Tablet 800 MG PO Q8H PRN for PAIN for 10 Days, #30 TAB 0 Refills Prov: SAHIL GODINEZ MD 06/25/22 Work/School Note: Work Release Form Date Seen in the Emergency Department: Jun 25, 2022 Return to Work: Jun 25, 2022 Restrictions: Need Release from Doctor Other Restrictions Listed Below: Sling Right arm. No use of R arm until cleared by Orthopedics SAHIL GODINEZ MD Jun 25, 2022 10:09
[2022-06-25 10:12] VITALS: BP 128/91
== END 2022-06-25 10:14 | disposition home or self-care (01) ==
LOC: EDUNIT# 09:14 → ER FS 09:20
DX: M25.511 Pain in right shoulder (principal); Z98.890 Other specified postprocedural states; Z28.310 Unvaccinated for COVID-19; X50.0XXA Overexertion from strenuous movement or load, initial encounter; Y92.512 Supermarket, store or market as the place of occurrence of the external cause; Y99.0 Civilian activity done for income or pay
CPT/HCPCS: 73030